=== PATIENT | female | born 1935 | race Caucasian/White ===

== ENCOUNTER 2017-10-17 19:49 | Emergency (ER) | payer MEDICARE, OTHER ==
[~2017-10-17] VITALS: Ht 149.9 cm; Wt 68.0 kg
[~2017-10-17 19:49] MED LIST: ERGO500027 PO; TRAM50TA PO
[2017-10-17 21:00] VITALS: BP 156/85
--- NOTE | 2017-10-17 21:32 | PHYS DOC ---
Past Medical History Past Medical History: Arrhythmia, Other Additional Past Medical Histor: SPINAL DETERIORATION; chronic back pain Past Surgical History: Other Additional Past Surgical Histo: SKIN CA REMOVAL Alcohol Use: None Drug Use: None Adult General Chief Complaint Chief Complaint: MECHANICAL FALL [facility] HPI Patient is a 82 year old female presenting to the emergency department for evaluation of left shoulder elbow and knee pain status post mechanical fall. She says she was trying to walk her dog when the dog started running and pulled on the leash and she fell forward onto her left side. She has multiple abrasions and she is unsure about her tetanus status and is refusing a tetanus shot here as she wants to speak with her primary care provider tomorrow. Patient denies any head neck chest abdomen back or other extremity pain and she was able to ambulate after this fall. Review of Systems Review of Systems Constitutional: Denies fever or chills [] Eyes: Denies change in visual acuity, redness, or eye pain [] Respiratory: Denies cough or shortness of breath [] Cardiovascular: No additional information not addressed in HPI [] GI: Denies abdominal pain, nausea, vomiting, bloody stools or diarrhea [] Musculoskeletal: Denies back pain. + joint pain [] Integument: + abrasions Neurologic: Denies headache, focal weakness or sensory changes [] All other systems were reviewed and found to be within normal limits, except as documented in this note. Allergies Allergies Allergies Coded Allergies Type Severity Reaction Last Updated Verified No Known Drug Allergies 01/19/15 No Physical Exam Physical Exam Constitutional: Well developed, well nourished, no acute distress, non-toxic appearance. [] HENT: Normocephalic, atraumatic, bilateral external ears normal, oropharynx moist, no oral exudates, nose normal. [] Eyes: PERRLA, EOMI, conjunctiva normal, no discharge. [] Neck: Normal range of motion, no tenderness, supple, no stridor. [] Cardiovascular:Heart rate regular rhythm, no murmur [] Lungs & Thorax: Bilateral breath sounds clear to auscultation [] Abdomen: Bowel sounds normal, soft, no tenderness, no masses, no pulsatile masses. [] Skin: Abrasion to left elbow with skin tear as well as abrasion to left anterior knee Back: No tenderness, no CVA tenderness. [] Extremities: Positive tenderness to palpation of anterior left knee and left proximal shoulder and left elbow. Neurologic: Alert and oriented X 3, normal motor function, normal sensory function, no focal deficits noted. [] Current Patient Data Vital Signs Vital Signs Date Time Temp Pulse Resp B/P (MAP) Pulse Ox O2 Delivery O2 Flow Rate FiO2 10/17/17 21:00 82 23 95 10/17/17 19:55 97.9 180/84 (116) Room Air 97.9 EKG EKG [] Radiology/Procedures Radiology/Procedures Left knee x-ray showed no obvious fracture dislocation soft tissue abnormality or foreign body Left elbow x-ray showed no obvious fracture dislocation soft tissue abnormality or foreign body Left shoulder x-ray showed likely proximal humerus fracture with very mild displacement. Small amount of soft tissue swelling with no dislocation. Course & Med Decision Making Course & Med Decision Making Patient looks well on repeat examination with normal neurovascular status. She will be put in a sling and follow with PCP and orthopedics and come back to the ED sooner with worsening pain weakness numbness tingling or other general concerns. Patient and daughter aware and agreeable with plan for discharge and verbalized understanding of the above instructions. Dragon Disclaimer Dragon Disclaimer This electronic medical record was generated, in whole or in part, using a voice recognition dictation system. Departure Departure Impression: Primary Impression: Fracture, humerus closed Disposition: 01 HOME, SELF-CARE Condition: STABLE Referrals: CHRIST WONG MD (PCP) JOSE M CASTELLON MD Patient Instructions: Humerus Fracture, Treated with Immobilization Additional Instructions: FOLLOW WITH DR. WONG TOMORROW AND COME BACK TO THE ED SOONER WITH ANY NEW OR WORSENING SYMPTOMS. THANK YOU! Problem Qualifiers Primary Impression: Fracture, humerus closed Encounter type: initial encounter Humerus Location: proximal Fracture alignment: nondisplaced Laterality: left ARI BONE DO Oct 17, 2017 21:32
--- NOTE | 2017-10-18 08:57 | RAD ---
Left humerus, 2 views, 10/17/2017: History: Fall, pain There is a fracture of the lateral aspect of the proximal humerus involving the humeral head and neck. There is only slight lateral displacement of the major lateral fracture fragment. The distal humerus is unremarkable. IMPRESSION: Proximal humeral fracture Left elbow, 3 views, 10/17/2017: No fracture or dislocation is identified. No elbow joint effusion is evident. IMPRESSION: No acute left elbow abnormality is detected. Left knee, 3 views, 10/17/2017: History: Fall on left side No fracture or dislocation is identified. There is mild spurring at the patellofemoral articulation. 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 Minimal chondrocalcinosis is noted. No large joint effusion is seen. There is mild subcutaneous edema medially. IMPRESSION: 1. Chronic findings as described above. 2. No acute bony abnormality is detected. Note: The findings were called to personnel in the [facility] ER at 8:52 AM on 10/18/2017.
== END 2017-10-17 21:44 | disposition home or self-care (01) ==
LOC: ER 19:49
DX: S42.202A Unspecified fracture of upper end of left humerus, initial encounter for closed fracture (principal); S80.212A Abrasion, left knee, initial encounter; M25.522 Pain in left elbow; G89.29 Other chronic pain; W19.XXXA Unspecified fall, initial encounter; Y93.01 Activity, walking, marching and hiking; Y99.8 Other external cause status; Y92.89 Other specified places as the place of occurrence of the external cause
CPT/HCPCS: 73060; 73080; 73562; 99284